=== PATIENT | male | born 1975 | race Caucasian/White ===

== ENCOUNTER → 2019-04-21 12:06 | Outpatient (CLI) | payer MEDICARE, MEDICAID, SELFPAY ==
--- NOTE | 2019-04-21 | DI.ECHO.S_ITS ---
[facility] +---------+ : : [address] : : : [place], [place] : : : : [id number] : : : : Phone: [phone]+ Echocardiogram Report + + :Name: BRAN SEYMOUR Study Date: 04/21/2019 Height: 70 in : :[facility] Exam Location: [facility] Weight: 140 lb : : Gender: Male BSA: 1.8 m2 : :: 1975 Age: 43 yrs BP: 130/72 mmHg: :Reason For Study: MS : : Performed By: Naren Freed : :Referring: ANNIKA THOMPSON : + + Interpretation Summary Sinus bradycardia with heart rate of 51-55 bpm. Normal LV size, wall thickenss, wall motion and LV systolic function. EF is 60-65%. Normal chamber sizes. No significant valvular abnormalities. There is a small PFO with left to right shunt. Compared to prior study 12/11/2017 PFO is newly appreciated. Procedure: A limited 2D, color and Doppler echocardiogram was performed to assess heart function. The study quality was technically good. Comparison is made with the echocardiogram of 12/11/17. The patient was in normal sinus rhythm during the exam. Thje patient was bradycardic with a heart rate of 51- 55 beats per minute. Left Ventricle: The left ventricle is normal in size, wall thickness, and systolic function without any focal wall motion abnormalities. The ejection fraction is estimated to be 60-65%. Right Ventricle: The right ventricle is normal in size and function. Atria: A small PFO with left to right flow is present. Mitral Valve: The mitral valve is normal. There is no mitral regurgitation noted. Aortic Valve: The aortic valve opens well. No aortic regurgitation is present. Tricuspid Valve: The tricuspid valve is normal. There is trace tricuspid regurgitation. The right ventricular systolic pressure is estimated to be at least 20 mmHg based on an estimated right atrial pressure of 3 mm Hg. Great Vessels: The aortic root is normal size. The IVC is of normal diameter and collapses greater than 50% with a sniff. This suggests a low right atrial pressure of 3 mm Hg. Pericardium/ Pleura There is no pericardial effusion. There is no pleural effusion. MMode/2D Measurements & Calculations LVIDd: 4.9 cm IVC diam: 1.8 cm LVIDs: 3.2 cm FS: 33.6 % IVSd: 0.63 cm LVPWd: 0.87 cm LV valdivia. diameter/BSA (cm/m^2): 2.7 LV sys. diameter/BSA (cm/m^2): 1.8 Doppler Measurements & Calculations MV E max nitin: 77.7 cm/sec TR max nitin: 206.4 cm/sec MV A max nitin: 63.6 cm/sec TR max P.0 mmHg MV E/A: 1.2 Med Peak E' Nitin: 8.3 cm/sec E/E' med: 9.4 Lat Peak E' Nitin: 13.1 cm/sec E/E' lat: 5.9 E/e' average: 7.7 MV dec time: 0.21 sec Electronically signed by: Jossy Rodriguez M.D. on Reading Physician:04/22/2019 01:31 AM
--- NOTE | 2019-04-21 | DI.MRI.S_ITS ---
PROCEDURE: MR HEAD/BRAIN WO/W CON INDICATIONS: MS TECHNIQUE: Noncontrast sagittal and axial FLAIR, axial and coronal T2 fast spin echo, axial VIBE, axial gradient echo, axial diffusion and ADC through the brain. After the administration of contrast, axial and coronal VIBE with fat saturation through the brain. COMPARISON: [facility], MR, BRAIN W&WO CONTRAST, 11/04/2017, 10:50. [facility], MR, BRAIN W&WO CONTRAST, 11/04/2016, 11:27. FINDINGS: Image quality: Excellent. CSF spaces: Ventricles are normal in size and shape. Basal cisterns are patent. No extra-axial fluid collections. Brain: There is abnormal white matter foci are seen within the periventricular and deep white matter. Several of the periventricular lesions demonstrate a perpendicular orientation to the lateral ventricles. There is involvement of the corpus callosum itself in subcortical involvement is seen, as on the left anteriorly, as on series 7 image 19. When compared to the prior examination, the white matter lesions have slightly progressed. There is involvement of the right midbrain. No definite cerebellar lesions can be seen. No abnormal enhancement can be seen. No intracranial bleeds or mass effects. Leblanc-white matter interface appears intact. No abnormal intracranial enhancement. Diffusion weighted images show no acute ischemic insults. Brainstem appears normal. Normal intravascular flow voids are present. Skull and face: Calvarial marrow signal is normal. Orbits appear normal. Sinuses: Sinuses and mastoids are clear. IMPRESSION: Progression of abnormal white matter lesions compared to the prior examination. The appearance is consistent with the given clinical history of multiple sclerosis. No abnormal enhancement can be seen. Dictated by: Eugene Neal M.D. on 04/21/2019 at 12:18 Approved by: Eugene Neal M.D. on 04/21/2019 at 12:21
== END ==
PROVIDERS: PCP Family Medicine; Visit Provider Psychiatry & Neurology Neurology
DX: G35 Multiple sclerosis (principal)
CPT/HCPCS: 70553; 93307; A9579

== ENCOUNTER → 2021-03-14 13:35 | Outpatient (CLI) | payer MEDICARE, MEDICAID, SELFPAY ==
[2021-03-14 19:20] LABS: Alanine Aminotransferase 57 IU/L (<50); Albumin Globulin Ratio 1.6 (1.0-2.8); Alkaline Phosphatase 85 U/L (38-126); Aspartate Aminotransferase 41 IU/L (17-59); BUN Creatinine Ratio 26.4 (6-22); Bilirubin Total 0.5 mg/dL (0.2-1.3); Blood Urea Nitrogen 19 mg/dL (9-20); Calcium 9.1 mg/dL (8.4-10.2); Carbon Dioxide 27 mmol/L (22-32); Chloride 103 mmol/L (98-107); Estimated Glomerular Filt Rate > 60.0 mL/min (>60); Globulin 2.5 g/dL (1.7-4.1); Glucose 115 mg/dL (70-100); HEMOLYSIS < 15 (0-50); Potassium 4.2 mmol/L (3.4-5.1); Sodium 135 mmol/L (137-145); Total Protein 6.5 g/dL (6.3-8.2)
[2021-03-14 19:21] LABS: Add Manual Diff / Slide Review NO; Basophils Absolute Auto 0 /uL (0-100); Basophils Percent Auto 0.4 % (0-2); Eosinophils Absolute Auto 100 /uL (0-450); Eosinophils Percent Auto 3.1 % (2-4); Hematocrit 44.6 % (41-53); Hemoglobin 14.8 g/dL (13.5-17.5); Lymphocytes Absolute Auto 200 /uL (1100-4500); Lymphocytes Percent Auto 5.2 % (25-40); Mean Corpuscular HGB Conc 33.2 % (30-36); Mean Corpuscular Hemoglobin 31.5 PG (26-34); Mean Corpuscular Volume 94.9 fL (80-100); Monocytes Absolute Auto 400 /uL (0-900); Monocytes Percent Auto 9.9 % (3-14); Neutrophils Absolute Auto 3000 /uL (1500-7000); Neutrophils Percent Auto 81.4 % (50-75); Platelet Count 178 X10^3/uL (150-400); Red Cell Distribution Width 13.6 % (11.6-14.8); White Blood Cell Count 3.7 X10^3/uL (4.5-11.0)
[2021-03-14 20:17] LABS: TSH w/ Reflex to FT4 1.03 uIU/mL (0.47-4.68)
[2021-03-14 20:26] LABS: Folate 3.9 ng/mL (2.76-20.0); Vitamin B12 265 pg/mL (239-931)
[2021-03-17 02:50] LABS: Methylmalonic Acid,Serum 564 nmol/L (0-378)
== END ==
PROVIDERS: PCP Family Medicine; Visit Provider Psychiatry & Neurology Neurology
DX: Z79.891 Long term (current) use of opiate analgesic (principal); M54.9 Dorsalgia, unspecified
CPT/HCPCS: 80053; 82607; 82746; 83921; 84443; 85025; 86711

== ENCOUNTER → 2021-05-24 13:13 | Outpatient (CLI) | payer MEDICARE, MEDICAID, SELFPAY ==
--- NOTE | 2021-05-24 14:09 | DI.MRI.S_ITS ---
PROCEDURE: MR HEAD/BRAIN WO/W CON INDICATIONS: Multiple sclerosis TECHNIQUE: Noncontrast sagittal and axial FLAIR, axial and coronal T2 fast spin echo, axial VIBE, axial gradient echo, axial diffusion and ADC through the brain. After the administration of contrast, axial and coronal VIBE with fat saturation through the brain. COMPARISON: Located [facility], , MR HEAD/BRAIN WO/W CON, 04/21/2019, 12:29. FINDINGS: Image quality: Excellent. CSF spaces: Ventricles are normal in size and shape. Basal cisterns are patent. No extra-axial fluid collections. Brain: Findings are stable. There are multiple areas of demyelination which are unchanged in size and appearance, with multiple lesions demonstrating a perpendicular orientation to the lateral ventricles, and involvement of the corpus callosum. No new or increasing lesions are identified. There are no enhancing lesions seen. No areas of abnormal enhancement are identified. No intracranial bleeds or mass effects. Leblanc-white matter interface appears intact. Diffusion weighted images show no acute ischemic insults. Brainstem appears normal. Normal intravascular flow voids are present. Skull and face: Calvarial marrow signal is normal. Orbits appear normal. Sinuses: Sinuses and mastoids are clear. IMPRESSION: Findings are stable. Multiple stable areas of demyelination consistent with a demyelinating process such as multiple sclerosis. No new or increasing lesions. No abnormal enhancement with gadolinium. Dictated by: Erik Mccabe M.D. on 05/24/2021 at 14:54 Approved by: Erik Mccabe M.D. on 05/24/2021 at 15:01
== END ==
PROVIDERS: PCP Family Medicine; Referring Provider Psychiatry & Neurology Neurology; Visit Provider Psychiatry & Neurology Neurology
DX: G35 Multiple sclerosis (principal); Z92.21 Personal history of antineoplastic chemotherapy
CPT/HCPCS: 70553; A9579

== ENCOUNTER → 2021-06-13 10:38 | Outpatient (CLI) | payer MEDICARE, MEDICAID, SELFPAY ==
[2021-06-13 19:40] LABS: Add Manual Diff / Slide Review NO; Basophils Absolute Auto 0 /uL (0-100); Basophils Percent Auto 0.3 % (0-2); Eosinophils Absolute Auto 200 /uL (0-450); Eosinophils Percent Auto 6.7 % (2-4); Hemoglobin 15.1 g/dL (13.5-17.5); Lymphocytes Absolute Auto 400 /uL (1100-4500); Mean Corpuscular HGB Conc 33.5 % (30-36); Mean Corpuscular Hemoglobin 32.2 PG (26-34); Monocytes Absolute Auto 400 /uL (0-900); Neutrophils Absolute Auto 2500 /uL (1500-7000); Platelet Count 209 X10^3/uL (150-400); Red Blood Cell Count 4.69 X10^6/uL (4.5-5.9); Red Cell Distribution Width 13.2 % (11.6-14.8); White Blood Cell Count 3.6 X10^3/uL (4.5-11.0)
[2021-06-13 19:44] LABS: Alanine Aminotransferase 70 IU/L (<50); Albumin 4.3 g/dL (3.5-5.0); Albumin Globulin Ratio 1.9 (1.0-2.8); Alkaline Phosphatase 88 U/L (38-126); Aspartate Aminotransferase 38 IU/L (17-59); BUN Creatinine Ratio 34.8 (6-22); Bilirubin Total 0.5 mg/dL (0.2-1.3); Blood Urea Nitrogen 23 mg/dL (9-20); Calcium 9.2 mg/dL (8.4-10.2); Carbon Dioxide 32 mmol/L (22-32); Chloride 102 mmol/L (98-107); Estimated Glomerular Filt Rate > 60.0 mL/min (>60); Globulin 2.3 g/dL (1.7-4.1); Glucose 96 mg/dL (70-100); HEMOLYSIS 31 (0-50); Potassium 4.4 mmol/L (3.4-5.1); Sodium 140 mmol/L (137-145); Total Protein 6.6 g/dL (6.3-8.2)
== END ==
PROVIDERS: PCP Family Medicine; Visit Provider Psychiatry & Neurology Neurology
DX: D72.810 Lymphocytopenia (principal); G35 Multiple sclerosis; R74.01 Elevation of levels of liver transaminase levels
CPT/HCPCS: 80053; 85025; 86711

== ENCOUNTER → 2021-07-04 09:02 | Outpatient (CLI) | payer MEDICARE, MEDICAID, SELFPAY ==
--- NOTE | 2021-07-04 09:05 | DI.ECHO.S_ITS ---
[facility]---------+ [facility] +---------+ : : [address] . : : : : [place] : : : : [id number] : : : : Phone: [phone]+ Echocardiogram Report + + :Name: BRAN SEYMOUR Study Date: 07/04/2021 Height: 70 in : :[facility] ReadingLocation: Weight: 175 lb : : Gender: Male BSA: 2.0 m2 : :: 1975 Age: 46 yrs BP: 162/94 mmHg: :Reason For Study: MULTIPLE SCLEROSIS : :Ordering Physician: JERAD, : :TACO Performed By: Dalila Lauren : :Referring: TACO MARS : + + Interpretation Summary The ejection fraction is estimated to be 60-65%. Normal diastolic function. Normal right ventricular systolic function. No significant valvular abnormalities. PASP is approximately 20 to 25 mmHg. Compared to the prior study dated 04/21/2019, no definite PFO seen on the current study; otherwise no change. Procedure: A two-dimensional transthoracic echocardiogram with color flow and Doppler was performed. The study quality was technically adequate. Comparison is made with the echocardiogram of 04/21/2019. The patient was in sinus bradycardia with heart rates between 55-60 bpm during the exam. Left Ventricle: The left ventricle is normal in size and wall thickness. The ejection fraction is estimated to be 60-65%. Diastolic parameters suggest probable normal left ventricular diastolic function and normal filling pressures. Right Ventricle: The right ventricle is borderline dilated. The right ventricular systolic function is normal. Atria: Both atria are normal in size. A patent foramen ovale is suspected. Doppler evidence suggests a left to right interatrial shunt. Mitral Valve: The mitral valve is normal in structure and function. There is trace mitral regurgitation. Aortic Valve: The aortic valve is trileaflet. The aortic valve opens well. There is no aortic valve stenosis. No aortic regurgitation is present. Tricuspid Valve: The tricuspid valve is normal in structure and function. There is trace tricuspid regurgitation. PASP is approximately 20 to 25 mmHg. Pulmonic Valve: The pulmonic valve is not well seen, but is grossly normal. There is no pulmonic valvular regurgitation. Great Vessels: The aortic root is normal size. The ascending aorta is at the upper limits of normal in size. The IVC is of normal diameter and collapses greater than 50% with a sniff. This suggests a low right atrial pressure of 3 mm Hg. Pericardium/ Pleura There is no pericardial effusion. There is no pleural effusion. MMode/2D Measurements & Calculations LVIDd: 5.0 cm LVOT diam: 2.5 cm LVIDs: 3.3 cm Ao root diam: 3.5 cm FS: 34.2 % asc Aorta Diam: 3.4 cm IVSd: 0.75 cm Ao Arch Diam (Prox Trans): 2.8 cm LVPWd: 0.86 cm LV valdivia. diameter/BSA (cm/m^2): 2.6 LV sys. diameter/BSA (cm/m^2): 1.7 LA A2 area: 20.5 cm2 RA long axis: 5.3 cm LA A4 area: 16.5 cm2 RA area: 17.2 cm2 LA length (vol): 4.9 cm RA vol: 47.6 ml LA vol: 58.6 ml RA : 24.1 ml/m2 LA vol index: 29.7 ml/m2 IVC diam: 1.2 cm RVD1 (basal): 4.1 cm TAPSE: 2.2 cm Doppler Measurements & Calculations Ao V2 max: 149.6 cm/sec LVOT Max Nitin: 86.3 cm/sec Ao V2 mean: 97.5 cm/sec LV V1 max P.0 mmHg Ao max P.0 mmHg LV V1 VTI: 19.4 cm Ao mean P.3 mmHg HANK(I,D): 3.0 cm2 Ao V2 VTI: 31.2 cm HANK(V,D): 2.8 cm2 sev ratio: 0.62 HANK indexed to BSA (cm^2/m^2): 1.5 MV E max nitin: 74.1 cm/sec TR max nitin: 210.2 cm/sec MV A max nitin: 67.9 cm/sec TR max P.7 mmHg MV E/A: 1.1 PA V2 max: 117.3 cm/sec Med Peak E' Nitin: 5.8 cm/sec PA V2 mean: 77.6 cm/sec E/E' med: 12.8 PA mean P.8 mmHg Lat Peak E' Nitin: 9.7 cm/sec PA pr(Accel): 20.8 mmHg E/E' lat: 7.6 E/e' average: 10.2 MV dec time: 0.25 sec SV(LVOT): 94.0 ml Reading Physician:02:14 PM
== END ==
PROVIDERS: PCP Family Medicine; Referring Provider Psychiatry & Neurology Neurology; Visit Provider Psychiatry & Neurology Neurology
DX: G35 Multiple sclerosis (principal)
CPT/HCPCS: 93306

== ENCOUNTER → 2021-08-15 12:01 | Outpatient (CLI) | payer MEDICARE, MEDICAID, SELFPAY ==
[2021-08-15 19:59] LABS: Add Manual Diff / Slide Review NO; Basophils Absolute Auto 0 /uL (0-100); Basophils Percent Auto 0.5 % (0-2); Eosinophils Absolute Auto 200 /uL (0-450); Eosinophils Percent Auto 6.9 % (2-4); Hematocrit 43.6 % (41-53); Hemoglobin 15.2 g/dL (13.5-17.5); Lymphocytes Absolute Auto 400 /uL (1100-4500); Lymphocytes Percent Auto 14.5 % (25-40); Mean Corpuscular HGB Conc 34.9 % (30-36); Mean Corpuscular Hemoglobin 33.1 PG (26-34); Mean Corpuscular Volume 94.8 fL (80-100); Monocytes Absolute Auto 400 /uL (0-900); Monocytes Percent Auto 14.1 % (3-14); Neutrophils Absolute Auto 1800 /uL (1500-7000); Platelet Count 187 X10^3/uL (150-400); Red Blood Cell Count 4.61 X10^6/uL (4.5-5.9); Red Cell Distribution Width 13.1 % (11.6-14.8); White Blood Cell Count 2.8 X10^3/uL (4.5-11.0)
[2021-08-15 20:03] LABS: Alanine Aminotransferase 33 IU/L (<50); Albumin 4.5 g/dL (3.5-5.0); Albumin Globulin Ratio 1.9 (1.0-2.8); Alkaline Phosphatase 65 U/L (38-126); Aspartate Aminotransferase 29 IU/L (17-59); BUN Creatinine Ratio 39.2 (6-22); Bilirubin Total 0.7 mg/dL (0.2-1.3); Blood Urea Nitrogen 29 mg/dL (9-20); Calcium 9.3 mg/dL (8.4-10.2); Carbon Dioxide 31 mmol/L (22-32); Chloride 106 mmol/L (98-107); Estimated Glomerular Filt Rate > 60.0 mL/min (>60); Globulin 2.4 g/dL (1.7-4.1); Glucose 90 mg/dL (70-100); HEMOLYSIS 17 (0-50); Potassium 4.3 mmol/L (3.4-5.1); Sodium 141 mmol/L (137-145); Total Protein 6.9 g/dL (6.3-8.2)
== END ==
PROVIDERS: Psychiatry & Neurology Neurology; PCP Physician Assistant Medical
DX: G35 Multiple sclerosis (principal); R74.01 Elevation of levels of liver transaminase levels; D72.810 Lymphocytopenia
CPT/HCPCS: 80053; 85025

== ENCOUNTER → 2021-10-31 11:35 | Outpatient (CLI) | payer MEDICARE, MEDICAID, SELFPAY ==
[2021-10-31 18:51] LABS: Add Manual Diff / Slide Review NO; Basophils Absolute Auto 0 /uL (0-100); Basophils Percent Auto 0.2 % (0-2); Eosinophils Absolute Auto 200 /uL (0-450); Eosinophils Percent Auto 6.9 % (2-4); Hematocrit 44.8 % (41-53); Hemoglobin 15.6 g/dL (13.5-17.5); Lymphocytes Absolute Auto 300 /uL (1100-4500); Lymphocytes Percent Auto 8.5 % (25-40); Mean Corpuscular HGB Conc 34.9 % (30-36); Mean Corpuscular Hemoglobin 32.5 PG (26-34); Mean Corpuscular Volume 93.1 fL (80-100); Monocytes Absolute Auto 400 /uL (0-900); Monocytes Percent Auto 11.5 % (3-14); Neutrophils Absolute Auto 2500 /uL (1500-7000); Neutrophils Percent Auto 72.9 % (50-75); Platelet Count 197 X10^3/uL (150-400); Red Blood Cell Count 4.81 X10^6/uL (4.5-5.9); Red Cell Distribution Width 12.7 % (11.6-14.8); White Blood Cell Count 3.4 X10^3/uL (4.5-11.0)
[2021-10-31 18:52] LABS: Alanine Aminotransferase 25 IU/L (<50); Albumin 4.3 g/dL (3.5-5.0); Albumin Globulin Ratio 1.8 (1.0-2.8); Alkaline Phosphatase 56 U/L (38-126); Aspartate Aminotransferase 23 IU/L (17-59); BUN Creatinine Ratio 27.6 (6-22); Bilirubin Total 0.5 mg/dL (0.2-1.3); Blood Urea Nitrogen 21 mg/dL (9-20); Calcium 9.3 mg/dL (8.4-10.2); Carbon Dioxide 34 mmol/L (22-32); Chloride 106 mmol/L (98-107); Estimated Glomerular Filt Rate > 60.0 mL/min (>60); Globulin 2.4 g/dL (1.7-4.1); Glucose 84 mg/dL (70-100); HEMOLYSIS < 15 (0-50); Potassium 4.2 mmol/L (3.4-5.1); Sodium 142 mmol/L (137-145); Total Protein 6.7 g/dL (6.3-8.2)
== END ==
PROVIDERS: PCP Physician Assistant Medical; Visit Provider Psychiatry & Neurology Neurology
DX: M54.9 Dorsalgia, unspecified (principal); D72.810 Lymphocytopenia; G35 Multiple sclerosis; R74.01 Elevation of levels of liver transaminase levels
CPT/HCPCS: 80053; 85025

== ENCOUNTER → 2022-02-01 13:36 | Outpatient (CLI) | payer MEDICARE, MEDICAID, SELFPAY ==
[2022-02-01 18:30] LABS: Add Manual Diff / Slide Review NO; Basophils Absolute Auto 0 /uL (0-100); Basophils Percent Auto 0.5 % (0-2); Eosinophils Absolute Auto 200 /uL (0-450); Eosinophils Percent Auto 5.9 % (2-4); Hematocrit 44.1 % (41-53); Hemoglobin 15.4 g/dL (13.5-17.5); Lymphocytes Absolute Auto 300 /uL (1100-4500); Lymphocytes Percent Auto 8.6 % (25-40); Mean Corpuscular HGB Conc 34.9 % (30-36); Mean Corpuscular Hemoglobin 32.5 PG (26-34); Mean Corpuscular Volume 93.1 fL (80-100); Monocytes Absolute Auto 400 /uL (0-900); Monocytes Percent Auto 11.9 % (3-14); Neutrophils Absolute Auto 2700 /uL (1500-7000); Neutrophils Percent Auto 73.1 % (50-75); Platelet Count 191 X10^3/uL (150-400); Red Blood Cell Count 4.74 X10^6/uL (4.5-5.9); Red Cell Distribution Width 13.3 % (11.6-14.8); White Blood Cell Count 3.7 X10^3/uL (4.5-11.0)
[2022-02-01 19:09] LABS: Alanine Aminotransferase 21 IU/L (<50); Albumin 4.3 g/dL (3.5-5.0); Albumin Globulin Ratio 1.7 (1.0-2.8); Alkaline Phosphatase 64 U/L (38-126); Aspartate Aminotransferase 24 IU/L (17-59); BUN Creatinine Ratio 34.2 (6-22); Bilirubin Total 0.5 mg/dL (0.2-1.3); Blood Urea Nitrogen 25 mg/dL (9-20); Calcium 9.5 mg/dL (8.4-10.2); Carbon Dioxide 28 mmol/L (22-32); Chloride 106 mmol/L (98-107); Estimated Glomerular Filt Rate > 60 mL/min (>60); Globulin 2.6 g/dL (1.7-4.1); Glucose 116 mg/dL (70-100); HEMOLYSIS < 15 (0-50); Potassium 4.3 mmol/L (3.4-5.1); Sodium 143 mmol/L (137-145); Total Protein 6.9 g/dL (6.3-8.2)
== END ==
PROVIDERS: PCP Physician Assistant Medical; Visit Provider Psychiatry & Neurology Neurology
DX: Z79.891 Long term (current) use of opiate analgesic (principal); D72.810 Lymphocytopenia; G35 Multiple sclerosis; R74.01 Elevation of levels of liver transaminase levels
CPT/HCPCS: 80053; 85025

== ENCOUNTER → 2022-05-08 10:31 | Outpatient (CLI) | payer MEDICARE, MEDICAID, SELFPAY ==
[2022-05-08 19:41] LABS: Add Manual Diff / Slide Review NO; Basophils Absolute Auto 0 /uL (0-100); Basophils Percent Auto 0.3 % (0-2); Eosinophils Absolute Auto 200 /uL (0-450); Eosinophils Percent Auto 7.7 % (2-4); Hematocrit 43.1 % (41-53); Hemoglobin 15.2 g/dL (13.5-17.5); Lymphocytes Absolute Auto 300 /uL (1100-4500); Lymphocytes Percent Auto 12.4 % (25-40); Mean Corpuscular HGB Conc 35.1 % (30-36); Mean Corpuscular Volume 94.1 fL (80-100); Monocytes Absolute Auto 400 /uL (0-900); Monocytes Percent Auto 13.4 % (3-14); Neutrophils Absolute Auto 1800 /uL (1500-7000); Neutrophils Percent Auto 66.2 % (50-75); Platelet Count 176 X10^3/uL (150-400); Red Blood Cell Count 4.58 X10^6/uL (4.5-5.9); Red Cell Distribution Width 12.9 % (11.6-14.8); White Blood Cell Count 2.7 X10^3/uL (4.5-11.0)
[2022-05-08 20:00] LABS: Alanine Aminotransferase 25 IU/L (<50); Albumin 4.3 g/dL (3.5-5.0); Albumin Globulin Ratio 1.8 (1.0-2.8); Alkaline Phosphatase 63 U/L (38-126); Aspartate Aminotransferase 21 IU/L (17-59); Bilirubin Total 0.6 mg/dL (0.2-1.3); Blood Urea Nitrogen 24 mg/dL (9-20); Calcium 9.4 mg/dL (8.4-10.2); Carbon Dioxide 33 mmol/L (22-32); Chloride 102 mmol/L (98-107); Estimated Glomerular Filt Rate > 60 mL/min (>60); Globulin 2.4 g/dL (1.7-4.1); Glucose 69 mg/dL (70-100); HEMOLYSIS < 15 (0-50); Potassium 4.2 mmol/L (3.4-5.1); Sodium 142 mmol/L (137-145); Total Protein 6.7 g/dL (6.3-8.2)
== END ==
PROVIDERS: PCP Physician Assistant Medical; Visit Provider Psychiatry & Neurology Neurology
DX: G35 Multiple sclerosis (principal); D72.810 Lymphocytopenia; R74.01 Elevation of levels of liver transaminase levels
CPT/HCPCS: 80053; 85025

== ENCOUNTER → 2022-09-12 14:35 | Outpatient (CLI) | payer MEDICARE, MEDICAID, SELFPAY ==
[2022-09-12 19:59] LABS: Add Manual Diff / Slide Review NO; Basophils Absolute Auto 0 /uL (0-100); Basophils Percent Auto 0.4 % (0-2); Eosinophils Absolute Auto 200 /uL (0-450); Eosinophils Percent Auto 3.4 % (2-4); Hematocrit 42.9 % (41-53); Hemoglobin 14.6 g/dL (13.5-17.5); Lymphocytes Absolute Auto 300 /uL (1100-4500); Lymphocytes Percent Auto 6.4 % (25-40); Mean Corpuscular HGB Conc 33.9 % (30-36); Mean Corpuscular Hemoglobin 32.3 PG (26-34); Mean Corpuscular Volume 95.3 fL (80-100); Monocytes Absolute Auto 400 /uL (0-900); Monocytes Percent Auto 8.5 % (3-14); Neutrophils Absolute Auto 4300 /uL (1500-7000); Neutrophils Percent Auto 81.3 % (50-75); Platelet Count 200 X10^3/uL (150-400); White Blood Cell Count 5.3 X10^3/uL (4.5-11.0)
[2022-09-12 20:11] LABS: Alanine Aminotransferase 23 IU/L (<50); Albumin 4.3 g/dL (3.5-5.0); Albumin Globulin Ratio 1.8 (1.0-2.8); Alkaline Phosphatase 75 U/L (38-126); Aspartate Aminotransferase 22 IU/L (17-59); BUN Creatinine Ratio 42.9 (6-22); Bilirubin Total 0.4 mg/dL (0.2-1.3); Blood Urea Nitrogen 33 mg/dL (9-20); Carbon Dioxide 28 mmol/L (22-32); Chloride 104 mmol/L (98-107); Estimated Glomerular Filt Rate > 60 mL/min (>60); Globulin 2.4 g/dL (1.7-4.1); Glucose 83 mg/dL (70-100); HEMOLYSIS < 15 (0-50); Potassium 4.2 mmol/L (3.4-5.1); Sodium 141 mmol/L (137-145); Total Protein 6.7 g/dL (6.3-8.2)
== END ==
PROVIDERS: PCP Physician Assistant Medical; Visit Provider Family Medicine
DX: Z79.891 Long term (current) use of opiate analgesic (principal); D72.810 Lymphocytopenia; G35 Multiple sclerosis; G50.0 Trigeminal neuralgia
CPT/HCPCS: 80053; 85025

== ENCOUNTER → 2022-09-25 11:13 | Outpatient (CLI) | payer MEDICARE, MEDICAID, SELFPAY ==
--- NOTE | 2022-09-25 11:17 | DI.MRI.S_ITS ---
PROCEDURE: MR HEAD/BRAIN WO/W CON INDICATIONS: Multiple sclerosis TECHNIQUE: Noncontrast axial T1 spin echo, axial T2 fast spin echo, sagittal and axial FLAIR, coronal T2 fast spin echo, axial gradient echo, axial diffusion and ADC through the brain. After the administration of contrast, axial and coronal and sagittal 3D VIBE or T1 spin echo with fat saturation through the brain. COMPARISON: 05/24/2021 FINDINGS: No significant change in the number, size, or distribution of numerous T2/FLAIR hyperintense signal abnormalities in the subcortical, deep, and periventricular white matter of both cerebral hemispheres when compared with the previous examination, allowing for subtle differences in size and conspicuity due to differing technique. No convincing evidence of new or obviously enlarging lesion. Postcontrast images demonstrate no abnormal brain parenchymal enhancement. No restricted diffusion to indicate recent ischemia. The major intracranial vascular flow-related signal voids are maintained. Midline structures are normal in configuration. No gross orbital abnormality. Paranasal sinuses and mastoid air cells clear. IMPRESSION: No significant change in number, size, or distribution of numerous T2/FLAIR hyperintense signal abnormalities within the cerebral hemispheric white matter. Findings remain consistent with multiple sclerosis. Approved by: Shaun Agrawal M.D. on 09/25/2022 at 13:14
== END ==
PROVIDERS: PCP Physician Assistant Medical; Referring Provider Psychiatry & Neurology Neurology; Visit Provider Psychiatry & Neurology Neurology
DX: G35 Multiple sclerosis (principal); R74.01 Elevation of levels of liver transaminase levels; D72.810 Lymphocytopenia; Z51.81 Encounter for therapeutic drug level monitoring
CPT/HCPCS: 70553

== ENCOUNTER → 2022-09-26 09:34 | Outpatient (CLI) | payer MEDICARE, MEDICAID, SELFPAY ==
[2022-09-26 19:12] LABS: Add Manual Diff / Slide Review NO; Basophils Absolute Auto 0 /uL (0-100); Basophils Percent Auto 0.4 % (0-2); Eosinophils Absolute Auto 300 /uL (0-450); Eosinophils Percent Auto 7.7 % (2-4); Hematocrit 42.7 % (41-53); Hemoglobin 14.6 g/dL (13.5-17.5); Lymphocytes Absolute Auto 400 /uL (1100-4500); Lymphocytes Percent Auto 13.1 % (25-40); Mean Corpuscular HGB Conc 34.2 % (30-36); Mean Corpuscular Hemoglobin 32.6 PG (26-34); Mean Corpuscular Volume 95.3 fL (80-100); Monocytes Absolute Auto 400 /uL (0-900); Monocytes Percent Auto 11.8 % (3-14); Neutrophils Absolute Auto 2200 /uL (1500-7000); Platelet Count 176 X10^3/uL (150-400); Red Blood Cell Count 4.48 X10^6/uL (4.5-5.9); Red Cell Distribution Width 13.1 % (11.6-14.8); White Blood Cell Count 3.3 X10^3/uL (4.5-11.0)
[2022-09-26 19:15] LABS: Alanine Aminotransferase 29 IU/L (<50); Albumin 3.9 g/dL (3.5-5.0); Albumin Globulin Ratio 1.4 (1.0-2.8); Alkaline Phosphatase 73 U/L (38-126); Aspartate Aminotransferase 22 IU/L (17-59); BUN Creatinine Ratio 31.2 (6-22); Bilirubin Total 0.4 mg/dL (0.2-1.3); Blood Urea Nitrogen 24 mg/dL (9-20); Carbon Dioxide 32 mmol/L (22-32); Chloride 103 mmol/L (98-107); Estimated Glomerular Filt Rate > 60 mL/min (>60); Globulin 2.7 g/dL (1.7-4.1); Glucose 88 mg/dL (70-100); HEMOLYSIS < 15 (0-50); Potassium 3.9 mmol/L (3.4-5.1); Sodium 141 mmol/L (137-145); Total Protein 6.6 g/dL (6.3-8.2)
== END ==
PROVIDERS: PCP Physician Assistant Medical; Visit Provider Psychiatry & Neurology Neurology
DX: G35 Multiple sclerosis (principal); D72.810 Lymphocytopenia; R74.01 Elevation of levels of liver transaminase levels; Z51.81 Encounter for therapeutic drug level monitoring
CPT/HCPCS: 80053; 85025

== ENCOUNTER → 2023-02-04 13:07 | Outpatient (CLI) | payer MEDICARE, MEDICAID, SELFPAY ==
[2023-02-04 19:51] LABS: Add Manual Diff / Slide Review NO; Basophils Absolute Auto 0 /uL (0-100); Basophils Percent Auto 0.2 % (0-2); Eosinophils Absolute Auto 100 /uL (0-450); Eosinophils Percent Auto 1.9 % (2-4); Hematocrit 41.8 % (41-53); Hemoglobin 14.5 g/dL (13.5-17.5); Lymphocytes Absolute Auto 300 /uL (1100-4500); Lymphocytes Percent Auto 5.4 % (25-40); Mean Corpuscular HGB Conc 34.6 % (30-36); Mean Corpuscular Hemoglobin 32.9 PG (26-34); Monocytes Absolute Auto 500 /uL (0-900); Monocytes Percent Auto 7.6 % (3-14); Neutrophils Absolute Auto 5200 /uL (1500-7000); Neutrophils Percent Auto 84.9 % (50-75); Platelet Count 198 X10^3/uL (150-400); Red Cell Distribution Width 13.1 % (11.6-14.8); White Blood Cell Count 6.1 X10^3/uL (4.5-11.0)
[2023-02-04 19:58] LABS: Alanine Aminotransferase 25 IU/L (<50); Albumin 4.2 g/dL (3.5-5.0); Albumin Globulin Ratio 1.8 (1.0-2.8); Alkaline Phosphatase 79 U/L (38-126); Aspartate Aminotransferase 23 IU/L (17-59); BUN Creatinine Ratio 40.4 (6-22); Bilirubin Total 0.5 mg/dL (0.2-1.3); Blood Urea Nitrogen 36 mg/dL (9-20); Calcium 9.4 mg/dL (8.4-10.2); Carbon Dioxide 34 mmol/L (22-32); Chloride 101 mmol/L (98-107); Estimated Glomerular Filt Rate > 60 mL/min (>60); Globulin 2.3 g/dL (1.7-4.1); Glucose 84 mg/dL (70-100); HEMOLYSIS < 15 (0-50); Potassium 4.5 mmol/L (3.4-5.1); Sodium 140 mmol/L (137-145); Total Protein 6.5 g/dL (6.3-8.2)
== END ==
PROVIDERS: PCP Physician Assistant Medical
DX: G35 Multiple sclerosis (principal); G50.0 Trigeminal neuralgia
CPT/HCPCS: 80053; 85025

== ENCOUNTER → 2023-07-14 10:55 | Outpatient (CLI) | payer MEDICARE, MEDICAID, SELFPAY ==
[2023-07-14 19:08] LABS: Add Manual Diff / Slide Review NO; Basophils Absolute Auto 0 /uL (0-100); Basophils Percent Auto 0.2 % (0-2); Eosinophils Absolute Auto 100 /uL (0-450); Eosinophils Percent Auto 3.8 % (2-4); Hematocrit 39.8 % (41-53); Hemoglobin 13.9 g/dL (13.5-17.5); Lymphocytes Absolute Auto 200 /uL (1100-4500); Lymphocytes Percent Auto 6.4 % (25-40); Mean Corpuscular HGB Conc 34.9 % (30-36); Mean Corpuscular Hemoglobin 33.3 PG (26-34); Mean Corpuscular Volume 95.3 fL (80-100); Monocytes Absolute Auto 300 /uL (0-900); Monocytes Percent Auto 8.7 % (3-14); Neutrophils Absolute Auto 2700 /uL (1500-7000); Neutrophils Percent Auto 80.9 % (50-75); Platelet Count 178 X10^3/uL (150-400); Red Blood Cell Count 4.17 X10^6/uL (4.5-5.9); Red Cell Distribution Width 12.8 % (11.6-14.8); White Blood Cell Count 3.3 X10^3/uL (4.5-11.0)
[2023-07-14 19:32] LABS: Alanine Aminotransferase 30 IU/L (<50); Albumin Globulin Ratio 1.6 (1.0-2.8); Alkaline Phosphatase 73 U/L (38-126); Aspartate Aminotransferase 21 IU/L (17-59); BUN Creatinine Ratio 45.1 (6-22); Bilirubin Total 0.5 mg/dL (0.2-1.3); Blood Urea Nitrogen 32 mg/dL (9-20); Calcium 9.3 mg/dL (8.4-10.2); Carbon Dioxide 30 mmol/L (22-32); Chloride 103 mmol/L (98-107); Estimated Glomerular Filt Rate > 60 mL/min (>60); Globulin 2.5 g/dL (1.7-4.1); Glucose 87 mg/dL (70-100); HEMOLYSIS < 15 (0-50); Potassium 3.9 mmol/L (3.4-5.1); Sodium 140 mmol/L (137-145); Total Protein 6.5 g/dL (6.3-8.2)
== END ==
PROVIDERS: PCP Family Medicine; Visit Provider Psychiatry & Neurology Neurology
DX: G35 Multiple sclerosis (principal); G50.0 Trigeminal neuralgia; Z51.81 Encounter for therapeutic drug level monitoring
CPT/HCPCS: 80053; 85025

== ENCOUNTER → 2023-09-29 08:30 | Outpatient (CLI) | payer MEDICARE, MEDICAID, SELFPAY ==
[2023-09-29 21:24] LABS: Aspartate Aminotransferase 21 IU/L (17-59)
== END ==
PROVIDERS: PCP Family Medicine; Visit Provider Family Medicine
DX: B35.1 Tinea unguium (principal)
CPT/HCPCS: 84450

== ENCOUNTER → 2023-11-26 12:48 | Outpatient (CLI) | payer MEDICARE, MEDICAID, SELFPAY ==
[2023-11-26 20:58] LABS: Add Manual Diff / Slide Review NO; Basophils Absolute Auto 0 /uL (0-100); Basophils Percent Auto 0.3 % (0-2); Eosinophils Absolute Auto 100 /uL (0-450); Hematocrit 42.8 % (41-53); Hemoglobin 14.4 g/dL (13.5-17.5); Lymphocytes Absolute Auto 300 /uL (1100-4500); Lymphocytes Percent Auto 9.3 % (25-40); Mean Corpuscular HGB Conc 33.7 % (30-36); Mean Corpuscular Hemoglobin 32.5 PG (26-34); Mean Corpuscular Volume 96.6 fL (80-100); Monocytes Absolute Auto 300 /uL (0-900); Neutrophils Absolute Auto 2100 /uL (1500-7000); Neutrophils Percent Auto 74.4 % (50-75); Platelet Count 196 X10^3/uL (150-400); Red Blood Cell Count 4.43 X10^6/uL (4.5-5.9); Red Cell Distribution Width 13.3 % (11.6-14.8); White Blood Cell Count 2.8 X10^3/uL (4.5-11.0)
[2023-11-26 20:59] LABS: Aspartate Aminotransferase 20 IU/L (17-59)
== END ==
PROVIDERS: PCP Family Medicine; Visit Provider Family Medicine
DX: B35.1 Tinea unguium (principal); D72.810 Lymphocytopenia
CPT/HCPCS: 84450; 85025

== ENCOUNTER → 2024-08-23 13:01 | Outpatient (CLI) | payer MEDICARE, MEDICAID, SELFPAY ==
[2024-08-23 19:52] LABS: Add Manual Diff / Slide Review NO; Basophils Absolute Auto 0 /uL (0-100); Eosinophils Absolute Auto 300 /uL (0-450); Eosinophils Percent Auto 9.7 % (2-4); Hematocrit 41.6 % (41-53); Hemoglobin 14.4 g/dL (13.5-17.5); Lymphocytes Absolute Auto 400 /uL (1100-4500); Lymphocytes Percent Auto 12.7 % (25-40); Mean Corpuscular HGB Conc 34.6 % (30-36); Mean Corpuscular Hemoglobin 32.7 PG (26-34); Mean Corpuscular Volume 94.5 fL (80-100); Monocytes Absolute Auto 300 /uL (0-900); Monocytes Percent Auto 9.5 % (3-14); Neutrophils Absolute Auto 2100 /uL (1500-7000); Neutrophils Percent Auto 67.1 % (50-75); Platelet Count 196 X10^3/uL (150-400); Red Cell Distribution Width 13.3 % (11.6-14.8); White Blood Cell Count 3.1 X10^3/uL (4.5-11.0)
[2024-08-23 20:06] LABS: Alanine Aminotransferase 22 IU/L (<50); Albumin 3.8 g/dL (3.5-5.0); Albumin Globulin Ratio 1.5 (1.0-2.8); Alkaline Phosphatase 62 U/L (38-126); Aspartate Aminotransferase 26 IU/L (17-59); BUN Creatinine Ratio 33.8 (6-22); Bilirubin Total 0.6 mg/dL (0.2-1.3); Blood Urea Nitrogen 25 mg/dL (9-20); Calcium 9.1 mg/dL (8.4-10.2); Carbon Dioxide 33 mmol/L (22-32); Chloride 104 mmol/L (98-107); Estimated Glomerular Filt Rate > 60 mL/min (>60); Globulin 2.5 g/dL (1.7-4.1); Glucose 100 mg/dL (70-100); HEMOLYSIS < 15 (0-50); Potassium 4.1 mmol/L (3.4-5.1); Sodium 136 mmol/L (137-145); Total Protein 6.3 g/dL (6.3-8.2)
[2024-08-25 06:36] LABS: Varicella IgG Antibody Reactive (Non Reactive)
== END ==
PROVIDERS: PCP Family Medicine; Visit Provider Psychiatry & Neurology Neurology
DX: G35 Multiple sclerosis (principal); Z51.81 Encounter for therapeutic drug level monitoring; G50.0 Trigeminal neuralgia
CPT/HCPCS: 80053; 85025; 86787

== ENCOUNTER → 2025-02-08 11:02 | Outpatient (CLI) | payer MEDICARE, MEDICAID, SELFPAY ==
--- NOTE | 2025-02-08 11:03 | DI.MRI.S_ITS ---
PROCEDURE: MR HEAD/BRAIN WO/W CON INDICATIONS: RELAPSING REMITTING MS TECHNIQUE: Noncontrast sagittal and axial FLAIR, axial and coronal T2 fast spin echo, axial VIBE, axial gradient echo, axial diffusion and ADC through the brain. After the administration of contrast, axial and coronal and sagittal VIBE with fat saturation through the brain. COMPARISON: [facility], MR, MR HEAD/BRAIN WO/W CON, 05/24/2021, 14:08. [facility], MR, MR CERVICAL SPINE WO/W CON, 02/08/2025, 11:08. [facility], MR, MR THORACIC SPINE WO/W CON, 02/08/2025, 11:08. [facility], MR, MR HEAD/BRAIN WO/W CON, 09/25/2022, 11:36. (Additional prior imaging is not available for review from the archive at the time of this dictation.) FINDINGS: Image quality: Excellent. CSF spaces: Ventricles are normal in size and shape. Basal cisterns are patent. No extra-axial fluid collections. Brain: Several foci of abnormal T2 weighted hyperintensity can be seen, which are primarily seen within the periventricular white matter. Perpendicular there is involvement of the corpus callosum. There is a lesion within the right luke and an additional likely lesion within the medulla. No definite cerebellar lesions are seen. Several of the larger lesions demonstrate low signal on T1 weighted imaging. These lesions are similar to 202. No abnormally enhancing lesions can be seen. No intracranial bleeds or mass effects. Leblanc-white matter interface appears intact. No abnormal intracranial enhancement. Diffusion weighted images show no acute ischemic insults. Brainstem appears normal. Normal intravascular flow voids are present. Skull and face: Calvarial marrow signal is normal. Orbits appear normal. Sinuses: Sinuses and mastoids are clear. IMPRESSION: Multiple foci of abnormal T2 weighted hyperintensity can be seen, which are primarily seen within the periventricular white matter. No abnormal enhancement can be seen. No definite progression compared to 2022. Dictated by: Eugene Neal M.D. on 02/08/2025 at 12:23 Approved by: Eugene Neal M.D. on 02/08/2025 at 12:27
--- NOTE | 2025-02-08 11:04 | DI.MRI.S_ITS ---
PROCEDURE: MR THORACIC SPINE WO/W CON INDICATIONS: RELAPSING REMITTING MS TECHNIQUE: Noncontrast sagittal T1 spin echo and T2 fast spin echo, sagittal STIR, axial T1 and T2 fast spin echo through the thoracic spine. After the administration of contrast, axial and sagittal T1 spin echo with fat saturation through the thoracic spine. COMPARISON: [facility], MR, MR CERVICAL SPINE WO/W CON, 02/08/2025, 11:08. [facility], MR, MR HEAD/BRAIN WO/W CON, 02/08/2025, 11:08. FINDINGS: Image quality: This examination is limited by involuntary motion artifact. Alignment and curvature: Accentuated thoracic kyphosis is seen. No focal AP alignment abnormality is seen. Marrow: Marrow is of normal overall signal. No acute vertebral body compression fractures. There is a remote compression deformity of T9, with 20% loss of height anteriorly. Spinal cord: In this patient with this given history, scrutiny is given to T2 hyperintense lesions within the thoracic spinal cord. None can be seen. Visualized spinal cord is of normal signal and size, without abnormal enhancement. Paraspinous soft tissues: No paravertebral masses or abnormal enhancement. Miscellaneous: Generalized underlying degenerative changes are seen, with scattered levels of mild disc space narrowing. No significant central canal narrowing can be seen. Few scattered levels of mild neural foraminal narrowing can be seen within the midthoracic spine. IMPRESSION: No suspicious T2 hyperintense lesions can be seen within the spinal cord. No abnormal enhancement is seen. Age-appropriate bony degenerative changes are seen. Accentuated thoracic kyphosis is seen. Dictated by: Eugene Neal M.D. on 02/08/2025 at 12:28 Approved by: Eugene Neal M.D. on 02/08/2025 at 12:30
--- NOTE | 2025-02-08 11:04 | DI.MRI.S_ITS ---
PROCEDURE: MR CERVICAL SPINE WO/W CON INDICATIONS: RELAPSING REMITTING MS TECHNIQUE: Noncontrast sagittal T1 spin echo and T2 fast spin echo, sagittal STIR, sagittal PD fast spin echo, foraminal oblique sagittal T2 fast spin echo, axial gradient echo or T2 fast spin echo through the cervical spine. After the administration of contrast, sagittal and axial T1 spin echo with fat saturation through the cervical spine. COMPARISON: [facility], MR, MR THORACIC SPINE WO/W CON, 02/08/2025, 11:08. [facility], MR, MR HEAD/BRAIN WO/W CON, 02/08/2025, 11:08. FINDINGS: Image quality: This examination is limited by involuntary motion artifact. Alignment and curvature: There is overall straightening of the normal cervical lordosis. No focal AP alignment abnormality is seen. Marrow: Marrow demonstrates normal overall signal. Spinal cord: A few nonenhancing brainstem lesions can be seen within the cervical cord, there is a faintly seen focus of increased T2 hyperintensity seen on the left at the C5 level, as on series 20, image 27. An additional nonenhancing T2 hyperintense lesion can be seen anteriorly at the C7 level, as on series 21, image 22 and on series 20, image 36. No suspicious intramedullary enhancement. No cerebellar tonsillar herniation. Paraspinous soft tissues: No paravertebral masses or suspicious enhancement. C2-C3: Mild loss of disc height is seen. Loss of disc signal is seen. Mild to moderate disc osteophyte complex is seen. There is a superimposed central disc osteophyte protrusion. There is mild right-sided and [id number] left-sided facet hypertrophy. There is at least moderate left-sided and no significant right-sided neural foraminal narrowing. No central canal narrowing is seen. C3-C4: The disc height is well-preserved. Loss of disc signal is seen at this level. A mild degree of generalized disc osteophyte complex is seen. There is mild right-sided and [id number] left-sided facet hypertrophy. There is moderate right- sided and at least moderate left-sided neural foraminal narrowing. Minimal central canal narrowing is seen. C4-C5: Moderate loss of disc height is seen. Loss of disc signal is seen. Moderate generalized disc osteophyte complex is seen. There is a superimposed central disc osteophyte protrusion. Uncovertebral joint hypertrophy is seen at this level. Moderate facet joint hypertrophy is seen. Moderate to severe bilateral neural foraminal narrowing can be seen, left worse than right. [id number] central canal narrowing is seen. C5-C6: At least moderate loss of disc height and disc signal can be seen. Moderate generalized disc osteophyte complex is seen. There is a superimposed central disc osteophyte protrusion. Uncovertebral joint hypertrophy is seen at this level. Moderate facet joint hypertrophy is seen. There is moderate to severe left-sided and at least moderate right-sided neural foraminal narrowing. Mild to moderate central canal narrowing is seen. C6-C7: Moderate loss of disc height is seen. Loss of disc signal is seen. Moderate generalized disc osteophyte complex is seen. Moderate generalized disc osteophyte complex is seen. Mild facet joint hypertrophy is seen. The there is at least moderate bilateral neural foraminal narrowing seen. Mild central canal narrowing is seen. C7-T1: Moderate loss of disc height is seen. Loss of disc signal is seen. A mild degree of generalized disc osteophyte complex is seen. Mild facet joint hypertrophy is seen. There is moderate to severe right-sided and moderate left-sided neural foraminal narrowing. No central canal narrowing is seen. IMPRESSION: A few scattered, nonenhancing T2 hyperintense lesions can be seen within the cervical cord, which are consistent with the given clinical history of multiple sclerosis. Straightening of the normal cervical lordosis is seen, which is commonly observed in patients with muscular spasm. Multiple levels of significant underlying cervical spine degenerative change can be seen, which are worst inferiorly. Dictated by: Eugene Neal M.D. on 02/08/2025 at 12:31 Approved by: Eugene Neal M.D. on 02/08/2025 at 12:37
== END ==
LOC: MRI 11:02
PROVIDERS: PCP Family Medicine; Referring Provider Psychiatry & Neurology Neurology; Visit Provider Psychiatry & Neurology Neurology
DX: G35 Multiple sclerosis (principal); G50.0 Trigeminal neuralgia; Z51.81 Encounter for therapeutic drug level monitoring
CPT/HCPCS: 70553; 72156; 72157; A9579

== ENCOUNTER → 2025-08-10 09:18 | Outpatient (CLI) | payer MEDICARE, MEDICAID, SELFPAY ==
[2025-08-10 19:15] LABS: Add Manual Diff / Slide Review NO; Hematocrit 42.6 % (41-53); Hemoglobin 14.9 g/dL (13.5-17.5); Lymphocytes Absolute Auto 500 /uL (1100-4500); Mean Corpuscular HGB Conc 34.9 % (30-36); Mean Corpuscular Hemoglobin 32.3 PG (26-34); Mean Corpuscular Volume 92.5 fL (80-100); Platelet Count 184 X10^3/uL (150-400)
[2025-08-10 19:24] LABS: Alanine Aminotransferase 19 IU/L (<50); Albumin 3.9 g/dL (3.5-5.0); Albumin Globulin Ratio 1.6 (1.0-2.8); Alkaline Phosphatase 66 U/L (38-126); Blood Urea Nitrogen 20 mg/dL (9-20); Calcium 9.0 mg/dL (8.4-10.2); Carbon Dioxide 30 mmol/L (22-32); Chloride 104 mmol/L (98-107); Cholesterol 177 mg/dL (140-199); Estimated Glomerular Filt Rate > 60 mL/min (>60); Globulin 2.5 g/dL (1.7-4.1); Glucose 102 mg/dL (70-99); HDL Cholesterol 81 mg/dL (40-60); HEMOLYSIS < 15 (0-50); Potassium 3.8 mmol/L (3.4-5.1); Sodium 140 mmol/L (137-145); Total Protein 6.4 g/dL (6.3-8.2); Triglycerides 53 mg/dL (35-150)
== END ==
PROVIDERS: PCP Family Medicine; Visit Provider Family Medicine
DX: E78.5 Hyperlipidemia, unspecified (principal); R23.2 Flushing; R63.4 Abnormal weight loss; D72.810 Lymphocytopenia; Z82.49 Family history of ischemic heart disease and other diseases of the circulatory system
CPT/HCPCS: 80053; 80061; 84402; 84403; 85025